=== PATIENT | male | born 1990 | race Two or more races ===

== ENCOUNTER 2017-11-23 11:46 | Emergency (ER) | payer SELFPAY ==
[2017-11-23] MEDS ORDERED: HYDROcodone/APAP 5/325MG 1 TAB TABLET PO ×2 (12:30)
[2017-11-23] MEDS: oxyCODONE/APAP 5/325 1 TAB TABLET PO ×2 (12:33)
[2017-11-23] MEDS: LIDOCAINE 2%/EPI 1:100,000 20 ML VIAL. IJ ×2 (12:34)
== END 2017-11-23 14:05 | disposition home or self-care (01) ==
LOC: ER 11:46
DX: L05.01 Pilonidal cyst with abscess (principal)
CPT/HCPCS: 10080; 99284-25; J3490

== ENCOUNTER 2017-11-25 13:49 | Emergency (ER) | payer SELFPAY | END 2017-11-25 14:51 | disposition home or self-care (01) | LOC: ER 13:49 | DX: L05.01 Pilonidal cyst with abscess (principal) | CPT/HCPCS: 99282 ==